=== PATIENT | male | born 1960 | race Caucasian/White ===

== ENCOUNTER 2018-02-05 06:33 | Day surgery (SDC) | payer OTHER ==
[2018-02-05] MEDS ORDERED: FENTAnyl 50 MCG/ML VIAL ×2 (07:50)
[2018-02-05] MEDS ORDERED: LABETALOL HCL 20MG INJ (07:50)
[2018-02-05] MEDS ORDERED: MIDAZOLAM 1 MG/ML 2 ML INJ (07:50)
[2018-02-05] MEDS ORDERED: NALOXONE (0.4 MG/ML) INJ (09:08)
== END 2018-02-05 16:13 | disposition home or self-care (01) ==
LOC: GIL 06:33
DX: Z12.11 Encounter for screening for malignant neoplasm of colon (principal); D12.2 Benign neoplasm of ascending colon; K63.5 Polyp of colon; K57.30 Diverticulosis of large intestine without perforation or abscess without bleeding; K63.89 Other specified diseases of intestine; K64.4 Residual hemorrhoidal skin tags; I10 Essential (primary) hypertension; E78.5 Hyperlipidemia, unspecified; E11.319 Type 2 diabetes mellitus with unspecified diabetic retinopathy without macular edema
CPT/HCPCS: 45380; 82962; 88305

== ENCOUNTER 2018-06-10 14:34 | Inpatient (IN) | payer OTHER ==
[2018-06-10 16:44] LABS: ADD MAN DIFF? NO
[2018-06-10 16:51] LABS: BASOPHILS % 0.6 % (0.0-2.0); EOSINOPHILS # 0.2 10^3/ul (0.0-0.5); EOSINOPHILS % 4.2 % (0.0-7.0); HEMATOCRIT 34.7 % (42.0-52.0); HEMOGLOBIN 10.6 g/dl (14.0-18.0); LYMPHOCYTES # 0.6 10^3/ul (0.8-2.9); MEAN CORPUSCULAR HEMOGLOBIN 27.1 pg (29.0-33.0); MEAN CORPUSCULAR HGB CONC 30.5 g/dl (32.0-37.0); MEAN CORPUSCULAR VOLUME 88.7 fl (82.0-101.0); MEAN PLATELET VOLUME 9.1 fl (7.4-10.4); MONOCYTE # 0.5 10^3/ul (0.3-0.9); MONOCYTES % 10.6 % (0.0-11.0); NEUTROPHIL # 3.6 10^3/ul (1.6-7.5); NEUTROPHILS % 72.2 % (39.0-77.0); PLATELET COUNT 224 10^3/UL (140-415); RED BLOOD COUNT 3.91 10^6/ul (4.70-6.10); RED CELL DISTRIBUTION WIDTH 16.2 % (11.5-14.5)
[2018-06-10] MEDS ORDERED: NITROGLYCERIN (SL) 0.4 MG TAB SL (17:00)
[2018-06-10] MEDS: FUROSEMIDE 40 MG INJ IV (17:03)
[2018-06-10] MEDS: ASPIRIN 81 MG TAB PO (17:03)
[2018-06-10] MEDS: NITROGLYCERIN 2% 1 GM OINT PKT TD (17:03)
[2018-06-10 17:11] LABS: ANION GAP 13 (5-13); BLOOD UREA NITROGEN 80 mg/dl (7-20); CALCIUM 8.7 mg/dl (8.4-10.2); CARBON DIOXIDE 24 mmol/L (21-31); CHLORIDE 108 mmol/L (97-110); CREATININE 5.28 mg/dl (0.61-1.24); Estimated GFR 11 mL/min (>60); GLUCOSE 161 mg/dl (70-220); POTASSIUM 4.5 mmol/L (3.5-5.1); SODIUM 145 mmol/L (135-144)
[2018-06-10] MEDS: CEFTRIAXONE 1 GM/50 ML (PMX) 50 ML IVPB (18:05)
[2018-06-10] MEDS: AZITHROMYCIN 500MG/NS (PMX) 250 ML IV (18:40)
[2018-06-10 18:41] LABS: LACTIC ACID 0.7 mmol/L (0.5-2.0)
[2018-06-10] MEDS ORDERED: ONDANSETRON 4 MG INJ IV (19:30)
[2018-06-10] MEDS ORDERED: ACETAMINOPHEN 325 MG TAB PO (19:30)
[2018-06-10 20:23] LABS: LACTIC ACID 0.8 mmol/L (0.5-2.0)
[2018-06-10] MEDS ORDERED: NACL 0.9% 3 ML SYG IV (20:30)
[2018-06-10 20:41] LABS: ANION GAP 14 (5-13); BLOOD UREA NITROGEN 80 mg/dl (7-20); CALCIUM 8.8 mg/dl (8.4-10.2); CARBON DIOXIDE 26 mmol/L (21-31); CHLORIDE 106 mmol/L (97-110); CREATININE 5.29 mg/dl (0.61-1.24); GLUCOSE 152 mg/dl (70-220); PHOSPHORUS 6.1 mg/dl (2.5-4.9); POTASSIUM 4.9 mmol/L (3.5-5.1); SODIUM 146 mmol/L (135-144)
[2018-06-10 22:27] LABS: CREATINE KINASE 216 IU/L (23-200)
[2018-06-10 22:39] LABS: CK INDEX 1.7; TROPONIN-I 0.026 ng/ml (0.000-0.120)
[2018-06-10] MEDS: morphine 2 MG INJ IV ×2 (22:40→23:08)
[2018-06-10 22:41] LABS: CK-MB 3.63 ng/ml (0.0-2.4)
[2018-06-11] MEDS: hydrALAzine 20 MG INJ IV (01:41)
[2018-06-11] MEDS: AMLODIPINE 5 MG TAB PO ×2 (01:41→08:46)
[2018-06-11] MEDS: FUROSEMIDE 40 MG INJ IV ×2 (01:42→18:20)
[2018-06-11 02:01] LABS: SODIUM,URINE RANDOM 97 mmol/L (30-90)
[2018-06-11 02:12] LABS: ADD UMIC YES; UR ASCORBIC ACID NEGATIVE (NEGATIVE); UR BACTERIA FEW /HPF (NONE SEEN); UR BILIRUBIN (Dip) NEGATIVE (NEGATIVE); UR BLOOD (Dip) 1+ mg/dL (NEGATIVE); UR CLARITY CLEAR (CLEAR); UR COLOR YELLOW (YELLOW); UR GLUCOSE (Dip) 2+ mg/dL (NEGATIVE); UR KETONES (Dip) NEGATIVE (NEGATIVE); UR LEUKOCYTE ESTERASE (Dip) NEGATIVE Leu/ul (NEGATIVE); UR NITRITE (Dip) NEGATIVE (NEGATIVE); UR RBC 14 /HPF (0-5); UR SPECIFIC GRAVITY (Dip) 1.013 (1.003-1.030); UR TOTAL PROTEIN (Dip) 3+ mg/dl (NEGATIVE); UR UROBILINOGEN (Dip) NEGATIVE (NEGATIVE); UR WBC 1 /HPF (0-5)
[2018-06-11] MEDS: METOLAZONE 2.5 MG TAB PO ×2 (02:19→04:14)
[2018-06-11 06:07] LABS: ADD MAN DIFF? NO
[2018-06-11 06:11] LABS: WHITE BLOOD COUNT 6.6 10^3/ul (4.8-10.8)
[2018-06-11 06:11] LABS: ABNORMAL IP MESSAGE 1; BASOPHIL # 0.1 10^3/ul (0.0-0.1); BASOPHILS % 0.9 % (0.0-2.0); EOSINOPHILS # 0.2 10^3/ul (0.0-0.5); EOSINOPHILS % 2.6 % (0.0-7.0); HEMATOCRIT 31.7 % (42.0-52.0); HEMOGLOBIN 9.8 g/dl (14.0-18.0); LYMPHOCYTES # 0.5 10^3/ul (0.8-2.9); LYMPHOCYTES % 7.1 % (15.0-51.0); MEAN CORPUSCULAR HEMOGLOBIN 27.3 pg (29.0-33.0); MEAN CORPUSCULAR HGB CONC 30.9 g/dl (32.0-37.0); MEAN CORPUSCULAR VOLUME 88.3 fl (82.0-101.0); MONOCYTE # 0.6 10^3/ul (0.3-0.9); MONOCYTES % 8.8 % (0.0-11.0); NEUTROPHIL # 5.3 10^3/ul (1.6-7.5); NEUTROPHILS % 80.1 % (39.0-77.0); PLATELET COUNT 201 10^3/UL (140-415); POSITIVE DIFF @See below; RED BLOOD COUNT 3.59 10^6/ul (4.70-6.10); RED CELL DISTRIBUTION WIDTH 16.1 % (11.5-14.5)
[2018-06-11 06:18] LABS: HAAIG REFLEX REFLEX FILED
[2018-06-11 06:44] LABS: CREATINE KINASE 192 IU/L (23-200)
[2018-06-11 06:53] LABS: HEMOGLOBIN A1C 6.5 % (0-5.9)
[2018-06-11 06:54] LABS: CK INDEX 1.9; TROPONIN-I 0.032 ng/ml (0.000-0.120)
[2018-06-11 07:16] LABS: CK-MB 3.63 ng/ml (0.0-2.4); HEPATITIS B SURFACE ANTIGEN NEGATIVE (NEGATIVE)
[2018-06-11 07:18] LABS: PROSTATE SPECIFIC ANTIGEN 2.6 ng/ml (0.0-4.0)
[2018-06-11 07:28] LABS: ALANINE AMINOTRANSFERASE 23 IU/L (13-69); ALBUMIN 3.6 g/dl (3.3-4.9); ALBUMIN/GLOBULIN RATIO 1.28; ALKALINE PHOSPHATASE 111 IU/L (42-121); ANION GAP 13 (5-13); ASPARTATE AMINO TRANSFERASE 16 IU/L (15-46); BLOOD UREA NITROGEN 79 mg/dl (7-20); CALCIUM 8.3 mg/dl (8.4-10.2); CARBON DIOXIDE 24 mmol/L (21-31); CHLORIDE 108 mmol/L (97-110); CHOL/HDL RATIO 3.7 RATIO; CHOLESTEROL 143 mg/dl (100-200); CREATININE 5.41 mg/dl (0.61-1.24); Estimated GFR 11 mL/min (>60); GLUCOSE 125 mg/dl (70-220); HDL CHOLESTEROL 38 mg/dl (30-78); LDL CHOLESTEROL,CALCULATED 84 mg/dl; MAGNESIUM 2.2 mg/dl (1.7-2.5); POTASSIUM 4.2 mmol/L (3.5-5.1); SODIUM 145 mmol/L (135-144); TOTAL PROTEIN 6.4 g/dl (6.1-8.1); TRIGLYCERIDES 104 mg/dl (0-149)
[2018-06-11 07:34] LABS: HEPATITIS B CORE ANTIBODY NEGATIVE (NEGATIVE); HEPATITIS C VIRAL ANTIBODY NEGATIVE (NEGATIVE)
[2018-06-11 07:36] LABS: HEPATITIS B SURFACE ANTIBODY NEGATIVE (NEGATIVE)
[2018-06-11] MEDS ORDERED: DEXTROSE 50% 50 ML SYRINGE IV (08:00)
[2018-06-11] MEDS ORDERED: GLUCOSE GEL 15 GRAM TUBE BUCCAL (08:00)
[2018-06-11] MEDS ORDERED: GLUCOSE GEL 15 GRAM TUBE PO ×2 (08:00)
[2018-06-11] MEDS ORDERED: GLUCAGON 1 MG INJ IM (08:00)
[2018-06-11 08:26] LABS: BILIRUBIN,INDIRECT 0.1 mg/dl (0-1.1); BILIRUBIN,TOTAL 0.1 mg/dl (0.2-1.3)
[2018-06-11] MEDS: INSULIN ASPART [NOVOLOG] 3 ML PEN SC ×4 (08:30→21:00)
[2018-06-11] MEDS: FERROUS SULFATE (EC) 325 MG TAB PO ×2 (08:46→21:11)
[2018-06-11 08:54] LABS: HEMOGLOBIN A1C 6.5 % (0-5.9)
[2018-06-11] MEDS: ACETAMINOPHEN 325 MG TAB PO (09:02)
[2018-06-11 11:08] LABS: B-TYPE NATRIURETIC PEPTIDE 61000 PG/ML (0-125)
[2018-06-11] MEDS: ERGOCALCIFEROL 50,000 UNIT CAP PO (11:43)
[2018-06-11] MEDS: METOPROLOL (XL) 25 MG TAB PO (11:43)
[2018-06-11] MEDS: NIFEdipine (XL) 30 MG TAB PO ×2 (11:44→21:11)
[2018-06-11 15:22] LABS: CREATININE,URINE RANDOM 64.07 mg/dl (20-370)
[2018-06-11 15:22] LABS: SODIUM,URINE RANDOM 109 mmol/L (30-90)
[2018-06-11 16:22] LABS: ADD UMIC YES; UR ASCORBIC ACID NEGATIVE (NEGATIVE); UR BILIRUBIN (Dip) NEGATIVE (NEGATIVE); UR BLOOD (Dip) 2+ mg/dL (NEGATIVE); UR BUDDING YEAST FEW /HPF (NONE SEEN); UR CLARITY SLIGHTLY CLOUDY (CLEAR); UR COLOR YELLOW (YELLOW); UR GLUCOSE (Dip) 1+ mg/dL (NEGATIVE); UR KETONES (Dip) NEGATIVE (NEGATIVE); UR LEUKOCYTE ESTERASE (Dip) TRACE Leu/ul (NEGATIVE); UR MUCUS FEW /HPF (NONE SEEN); UR NITRITE (Dip) NEGATIVE (NEGATIVE); UR RBC 169 /HPF (0-5); UR SPECIFIC GRAVITY (Dip) 1.012 (1.003-1.030); UR TOTAL PROTEIN (Dip) 3+ mg/dl (NEGATIVE); UR UROBILINOGEN (Dip) NEGATIVE (NEGATIVE); UR WBC 11 /HPF (0-5)
[2018-06-11] MEDS: CEFTRIAXONE 1 GM/50 ML (PMX) 50 ML IVPB (20:04)
[2018-06-11] MEDS: AZITHROMYCIN 500MG/NS (PMX) 250 ML IVPB (20:04)
[2018-06-11] MEDS ORDERED: INSULIN GLARGINE [LANtus] 3 ML PEN SC (21:00)
[2018-06-11] MEDS: ATORVASTATIN 40 MG TAB PO (21:11)
[2018-06-11] MEDS: TAMSULOSIN (SR) 0.4 MG CAP PO (21:11)
[2018-06-11] MEDS: INSULIN GLARGINE [LANTus] (100 UNITS/ML) SYG SC (21:15)
[2018-06-12] MEDS: ACCU-CHEK XX (02:00)
[2018-06-12 06:02] LABS: ADD MAN DIFF? NO
[2018-06-12 06:03] LABS: WHITE BLOOD COUNT 4.3 10^3/ul (4.8-10.8)
[2018-06-12 06:03] LABS: ABNORMAL IP MESSAGE 1; BASOPHIL # 0.1 10^3/ul (0.0-0.1); BASOPHILS % 1.2 % (0.0-2.0); EOSINOPHILS # 0.1 10^3/ul (0.0-0.5); EOSINOPHILS % 2.3 % (0.0-7.0); HEMATOCRIT 30.8 % (42.0-52.0); HEMOGLOBIN 9.4 g/dl (14.0-18.0); LYMPHOCYTES # 0.5 10^3/ul (0.8-2.9); LYMPHOCYTES % 11.2 % (15.0-51.0); MEAN CORPUSCULAR HEMOGLOBIN 27.2 pg (29.0-33.0); MEAN CORPUSCULAR HGB CONC 30.5 g/dl (32.0-37.0); MEAN PLATELET VOLUME 10.2 fl (7.4-10.4); MONOCYTE # 0.4 10^3/ul (0.3-0.9); MONOCYTES % 9.1 % (0.0-11.0); NEUTROPHIL # 3.3 10^3/ul (1.6-7.5); PLATELET COUNT 222 10^3/UL (140-415); POSITIVE DIFF @See below; RED BLOOD COUNT 3.46 10^6/ul (4.70-6.10); RED CELL DISTRIBUTION WIDTH 16.3 % (11.5-14.5)
[2018-06-12 06:32] LABS: CHOLESTEROL 131 mg/dl (100-200)
[2018-06-12 06:32] LABS: CHOL/HDL RATIO 3.6 RATIO; CREATINE KINASE 141 IU/L (23-200); HDL CHOLESTEROL 36 mg/dl (30-78); LDL CHOLESTEROL,CALCULATED 78 mg/dl; TRIGLYCERIDES 87 mg/dl (0-149)
[2018-06-12 06:41] LABS: ANION GAP 14 (5-13); BLOOD UREA NITROGEN 81 mg/dl (7-20); CALCIUM 8.1 mg/dl (8.4-10.2); CARBON DIOXIDE 25 mmol/L (21-31); CHLORIDE 107 mmol/L (97-110); CREATININE 5.73 mg/dl (0.61-1.24); Estimated GFR 10 mL/min (>60); GLUCOSE 62 mg/dl (70-220); MAGNESIUM 2.3 mg/dl (1.7-2.5); PHOSPHORUS 6.2 mg/dl (2.5-4.9); SODIUM 146 mmol/L (135-144)
[2018-06-12 06:42] LABS: CK INDEX 2.2; TROPONIN-I 0.038 ng/ml (0.000-0.120)
[2018-06-12 06:48] LABS: CK-MB 3.06 ng/ml (0.0-2.4)
[2018-06-12] MEDS: INSULIN ASPART [NOVOLOG] 3 ML PEN SC ×4 (08:00→20:51)
[2018-06-12] MEDS: NIFEdipine (XL) 60 MG TAB PO (08:18)
[2018-06-12] MEDS: METOPROLOL (XL) 25 MG TAB PO (08:19)
[2018-06-12] MEDS: FERROUS SULFATE (EC) 325 MG TAB PO ×2 (08:19→20:39)
[2018-06-12] MEDS: DEXTROSE 50% 50 ML SYRINGE IV (08:20)
[2018-06-12] MEDS: SEVELAMER CARBONATE 800 MG TABLET PO ×3 (09:36→17:25)
[2018-06-12 13:54] LABS: IRON 24 ug/dl (35-150)
[2018-06-12 14:03] LABS: % IRON SATURATION 10 % SAT (22-52); TOTAL IRON BINDING CAPACITY 243 ug/dl (241-421)
[2018-06-12] MEDS: CALCITRIOL 1 MCG INJ IV (15:04)
[2018-06-12] MEDS: CHOLECALCIFEROL 2,000 UNIT CAP PO (17:27)
[2018-06-12] MEDS: ATORVASTATIN 40 MG TAB PO (20:39)
[2018-06-12] MEDS: DOCUSATE SODIUM 100 MG CAP PO (20:40)
[2018-06-12] MEDS: NIFEdipine (XL) 30 MG TAB PO (20:40)
[2018-06-12] MEDS: CEFTRIAXONE 1 GM/50 ML (PMX) 50 ML IVPB (20:42)
[2018-06-12] MEDS: AZITHROMYCIN 500MG/NS (PMX) 250 ML IVPB (20:43)
[2018-06-12] MEDS: TAMSULOSIN (SR) 0.4 MG CAP PO (20:44)
[2018-06-12] MEDS: INSULIN GLARGINE [LANTus] (100 UNITS/ML) SYG SC (20:50)
[2018-06-13] MEDS: ACCU-CHEK XX (02:00)
[2018-06-13 05:37] LABS: ADD MAN DIFF? NO
[2018-06-13 05:38] LABS: ABNORMAL IP MESSAGE 1; BASOPHIL # 0.1 10^3/ul (0.0-0.1); EOSINOPHILS # 0.2 10^3/ul (0.0-0.5); EOSINOPHILS % 3.5 % (0.0-7.0); HEMATOCRIT 31.2 % (42.0-52.0); HEMOGLOBIN 9.6 g/dl (14.0-18.0); LYMPHOCYTES # 0.6 10^3/ul (0.8-2.9); LYMPHOCYTES % 12.1 % (15.0-51.0); MEAN CORPUSCULAR HEMOGLOBIN 27.4 pg (29.0-33.0); MEAN CORPUSCULAR HGB CONC 30.8 g/dl (32.0-37.0); MEAN CORPUSCULAR VOLUME 89.1 fl (82.0-101.0); MEAN PLATELET VOLUME 9.9 fl (7.4-10.4); MONOCYTE # 0.6 10^3/ul (0.3-0.9); MONOCYTES % 11.9 % (0.0-11.0); NEUTROPHIL # 3.4 10^3/ul (1.6-7.5); NEUTROPHILS % 71.1 % (39.0-77.0); PLATELET COUNT 218 10^3/UL (140-415); POSITIVE DIFF @See below; RED CELL DISTRIBUTION WIDTH 16.1 % (11.5-14.5)
[2018-06-13 05:38] LABS: WHITE BLOOD COUNT 4.8 10^3/ul (4.8-10.8)
[2018-06-13 06:26] LABS: ANION GAP 15 (5-13); BLOOD UREA NITROGEN 82 mg/dl (7-20); CARBON DIOXIDE 24 mmol/L (21-31); CHLORIDE 107 mmol/L (97-110); CREATININE 6.15 mg/dl (0.61-1.24); Estimated GFR 9 mL/min (>60); GLUCOSE 135 mg/dl (70-220); MAGNESIUM 2.3 mg/dl (1.7-2.5); PHOSPHORUS 6.4 mg/dl (2.5-4.9); SODIUM 146 mmol/L (135-144)
[2018-06-13] MEDS: INSULIN ASPART [NOVOLOG] 3 ML PEN SC ×4 (08:00→20:49)
[2018-06-13] MEDS: SEVELAMER CARBONATE 800 MG TABLET PO ×3 (08:11→17:35)
[2018-06-13] MEDS: CHOLECALCIFEROL 2,000 UNIT CAP PO (08:52)
[2018-06-13] MEDS: FERROUS SULFATE (EC) 325 MG TAB PO ×2 (08:52→20:40)
[2018-06-13] MEDS: METOPROLOL (XL) 25 MG TAB PO ×2 (08:53→20:42)
[2018-06-13] MEDS: NIFEdipine (XL) 60 MG TAB PO (08:53)
[2018-06-13] MEDS: DOXAZOSIN 2 MG TAB PO (12:25)
[2018-06-13] MEDS: CEFTRIAXONE 1 GM/50 ML (PMX) 50 ML IVPB (20:33)
[2018-06-13] MEDS: ASCORBIC ACID 500 MG TAB PO (20:40)
[2018-06-13] MEDS: ATORVASTATIN 40 MG TAB PO (20:40)
[2018-06-13] MEDS: DOXAZOSIN 4 MG TAB PO (20:41)
[2018-06-13] MEDS: INSULIN GLARGINE [LANTus] (100 UNITS/ML) SYG SC (20:49)
[2018-06-13] MEDS: AZITHROMYCIN 500MG/NS (PMX) 250 ML IVPB (21:21)
[2018-06-14] MEDS: ACCU-CHEK XX (02:08)
[2018-06-14 06:08] LABS: ADD MAN DIFF? NO
[2018-06-14 06:24] LABS: WHITE BLOOD COUNT 4.5 10^3/ul (4.8-10.8)
[2018-06-14 06:25] LABS: ABNORMAL IP MESSAGE 1; BASOPHIL # 0.1 10^3/ul (0.0-0.1); BASOPHILS % 1.3 % (0.0-2.0); EOSINOPHILS # 0.2 10^3/ul (0.0-0.5); EOSINOPHILS % 4.8 % (0.0-7.0); HEMATOCRIT 31.9 % (42.0-52.0); HEMOGLOBIN 9.8 g/dl (14.0-18.0); LYMPHOCYTES # 0.6 10^3/ul (0.8-2.9); LYMPHOCYTES % 12.6 % (15.0-51.0); MEAN CORPUSCULAR HEMOGLOBIN 27.2 pg (29.0-33.0); MEAN CORPUSCULAR HGB CONC 30.7 g/dl (32.0-37.0); MEAN CORPUSCULAR VOLUME 88.6 fl (82.0-101.0); MEAN PLATELET VOLUME 10.1 fl (7.4-10.4); MONOCYTE # 0.5 10^3/ul (0.3-0.9); NEUTROPHIL # 3.2 10^3/ul (1.6-7.5); NEUTROPHILS % 69.9 % (39.0-77.0); PLATELET COUNT 230 10^3/UL (140-415); POSITIVE DIFF @See below; RED CELL DISTRIBUTION WIDTH 16.2 % (11.5-14.5)
[2018-06-14 06:41] LABS: ANION GAP 11 (5-13); BLOOD UREA NITROGEN 84 mg/dl (7-20); CARBON DIOXIDE 23 mmol/L (21-31); CHLORIDE 111 mmol/L (97-110); CREATININE 6.59 mg/dl (0.61-1.24); Estimated GFR 9 mL/min (>60); GLUCOSE 71 mg/dl (70-220); MAGNESIUM 2.5 mg/dl (1.7-2.5); PHOSPHORUS 6.9 mg/dl (2.5-4.9); POTASSIUM 4.1 mmol/L (3.5-5.1); SODIUM 145 mmol/L (135-144)
[2018-06-14] MEDS: SEVELAMER CARBONATE 800 MG TABLET PO ×3 (07:31→17:22)
[2018-06-14] MEDS: INSULIN ASPART [NOVOLOG] 3 ML PEN SC ×4 (07:31→20:48)
[2018-06-14] MEDS: CHOLECALCIFEROL 2,000 UNIT CAP PO (09:04)
[2018-06-14] MEDS: ASCORBIC ACID 500 MG TAB PO ×2 (09:05→20:47)
[2018-06-14] MEDS: FERROUS SULFATE (EC) 325 MG TAB PO ×2 (09:05→20:47)
[2018-06-14] MEDS: METOPROLOL (XL) 25 MG TAB PO ×2 (09:09→20:48)
[2018-06-14] MEDS: NIFEdipine (XL) 60 MG TAB PO (09:10)
[2018-06-14 11:52] LABS: INR 1.07; PT RATIO 1.1
[2018-06-14 15:26] LABS: PROTIME 13.3 Sec (11.9-14.9)
[2018-06-14 15:27] LABS: PARTIAL THROMBOPLASTIN TIME 33.7 Sec (23.0-35.0)
[2018-06-14 17:56] LABS: CREATININE, RANDOM URINE 64 mg/dL (20-320); CREATININE, RANDOM URINE 70 mg/dL (20-320); MICROALBUMIN 258.3 mg/dL; MICROALBUMIN 422.2 mg/dL; MICROALBUMIN/CREATININE RATIO 4036 (<30); MICROALBUMIN/CREATININE RATIO 6031 (<30)
[2018-06-14] MEDS: CEFTRIAXONE 1 GM/50 ML (PMX) 50 ML IVPB (20:47)
[2018-06-14] MEDS: ATORVASTATIN 40 MG TAB PO (20:48)
[2018-06-14] MEDS: DOXAZOSIN 4 MG TAB PO (20:48)
[2018-06-14] MEDS: INSULIN GLARGINE [LANTus] (100 UNITS/ML) SYG SC (20:54)
[2018-06-14 22:32] LABS: PSA, FREE 1.3 ng/mL
[2018-06-15] MEDS: ACCU-CHEK XX (02:00)
[2018-06-15 07:02] LABS: ADD MAN DIFF? NO
[2018-06-15 07:20] LABS: ABNORMAL IP MESSAGE 1; BASOPHIL # 0.1 10^3/ul (0.0-0.1); BASOPHILS % 1.5 % (0.0-2.0); EOSINOPHILS # 0.2 10^3/ul (0.0-0.5); EOSINOPHILS % 4.4 % (0.0-7.0); HEMATOCRIT 31.9 % (42.0-52.0); HEMOGLOBIN 9.8 g/dl (14.0-18.0); LYMPHOCYTES # 0.6 10^3/ul (0.8-2.9); LYMPHOCYTES % 11.9 % (15.0-51.0); MEAN CORPUSCULAR HEMOGLOBIN 27.3 pg (29.0-33.0); MEAN CORPUSCULAR HGB CONC 30.7 g/dl (32.0-37.0); MEAN CORPUSCULAR VOLUME 88.9 fl (82.0-101.0); MEAN PLATELET VOLUME 10.5 fl (7.4-10.4); MONOCYTE # 0.5 10^3/ul (0.3-0.9); NEUTROPHIL # 3.4 10^3/ul (1.6-7.5); NEUTROPHILS % 71.8 % (39.0-77.0); PLATELET COUNT 220 10^3/UL (140-415); POSITIVE DIFF @See below; RED BLOOD COUNT 3.59 10^6/ul (4.70-6.10); RED CELL DISTRIBUTION WIDTH 16.1 % (11.5-14.5)
[2018-06-15 07:20] LABS: WHITE BLOOD COUNT 4.8 10^3/ul (4.8-10.8)
[2018-06-15 07:55] LABS: ANION GAP 13 (5-13); BLOOD UREA NITROGEN 80 mg/dl (7-20); CARBON DIOXIDE 24 mmol/L (21-31); CHLORIDE 108 mmol/L (97-110); Estimated GFR 9 mL/min (>60); GLUCOSE 106 mg/dl (70-220); MAGNESIUM 2.4 mg/dl (1.7-2.5); PHOSPHORUS 6.7 mg/dl (2.5-4.9); POTASSIUM 4.1 mmol/L (3.5-5.1); SODIUM 145 mmol/L (135-144)
[2018-06-15] MEDS: SEVELAMER CARBONATE 800 MG TABLET PO ×3 (08:00→18:15)
[2018-06-15] MEDS: INSULIN ASPART [NOVOLOG] 3 ML PEN SC ×4 (08:00→20:33)
[2018-06-15] MEDS: ASCORBIC ACID 500 MG TAB PO ×2 (09:10→22:52)
[2018-06-15] MEDS: NIFEdipine (XL) 60 MG TAB PO (09:10)
[2018-06-15] MEDS: METOPROLOL (XL) 25 MG TAB PO ×2 (09:11→22:54)
[2018-06-15] MEDS: CHOLECALCIFEROL 2,000 UNIT CAP PO (09:11)
[2018-06-15] MEDS: FERROUS SULFATE (EC) 325 MG TAB PO ×2 (09:12→22:52)
[2018-06-15] MEDS ORDERED: FENTAnyl 50 MCG/ML VIAL (10:04)
[2018-06-15] MEDS ORDERED: LIDOCAINE 1% (MDV) 20 ML INJ (10:04)
[2018-06-15] MEDS ORDERED: MIDAZOLAM 1 MG/ML 2 ML INJ (10:04)
[2018-06-15] MEDS ORDERED: HEPARIN 1000 UNITS/NS (A-LINE) 1,000 ML (10:04)
[2018-06-15] MEDS ORDERED: HEPARIN 1000 UNITS/ML 10 ML INJ (10:04)
[2018-06-15] MEDS: CALCITRIOL 1 MCG INJ IV (12:17)
[2018-06-15] MEDS: INSULIN GLARGINE [LANTus] (100 UNITS/ML) SYG SC (20:32)
[2018-06-15] MEDS: HEPARIN 1000 UNITS/ML 10 ML INJ CATHETER (22:25)
[2018-06-15] MEDS: ATORVASTATIN 40 MG TAB PO (22:52)
[2018-06-15] MEDS: CEFTRIAXONE 1 GM/50 ML (PMX) 50 ML IVPB (22:52)
[2018-06-15] MEDS: DOXAZOSIN 4 MG TAB PO (22:53)
[2018-06-15] MEDS: ACETAMINOPHEN 325 MG TAB PO (22:59)
[2018-06-16] MEDS: ACCU-CHEK XX (01:23)
[2018-06-16] MEDS: hydrALAzine 20 MG INJ IV (03:49)
[2018-06-16 06:05] LABS: ADD MAN DIFF? NO
[2018-06-16 06:08] LABS: WHITE BLOOD COUNT 4.4 10^3/ul (4.8-10.8)
[2018-06-16 06:08] LABS: ABNORMAL IP MESSAGE 1; BASOPHIL # 0.1 10^3/ul (0.0-0.1); BASOPHILS % 1.1 % (0.0-2.0); EOSINOPHILS # 0.2 10^3/ul (0.0-0.5); EOSINOPHILS % 3.9 % (0.0-7.0); HEMATOCRIT 31.7 % (42.0-52.0); HEMOGLOBIN 9.8 g/dl (14.0-18.0); LYMPHOCYTES # 0.4 10^3/ul (0.8-2.9); LYMPHOCYTES % 9.2 % (15.0-51.0); MEAN CORPUSCULAR HEMOGLOBIN 27.1 pg (29.0-33.0); MEAN CORPUSCULAR HGB CONC 30.9 g/dl (32.0-37.0); MEAN CORPUSCULAR VOLUME 87.6 fl (82.0-101.0); MEAN PLATELET VOLUME 10.3 fl (7.4-10.4); MONOCYTE # 0.4 10^3/ul (0.3-0.9); MONOCYTES % 9.6 % (0.0-11.0); NEUTROPHIL # 3.3 10^3/ul (1.6-7.5); NEUTROPHILS % 75.7 % (39.0-77.0); PLATELET COUNT 209 10^3/UL (140-415); POSITIVE DIFF @See below; RED BLOOD COUNT 3.62 10^6/ul (4.70-6.10); RED CELL DISTRIBUTION WIDTH 15.9 % (11.5-14.5)
[2018-06-16 06:40] LABS: ANION GAP 11 (5-13); BLOOD UREA NITROGEN 58 mg/dl (7-20); CARBON DIOXIDE 27 mmol/L (21-31); CHLORIDE 105 mmol/L (97-110); CREATININE 4.68 mg/dl (0.61-1.24); Estimated GFR 13 mL/min (>60); GLUCOSE 107 mg/dl (70-220); MAGNESIUM 2.2 mg/dl (1.7-2.5); PHOSPHORUS 4.9 mg/dl (2.5-4.9); POTASSIUM 4.1 mmol/L (3.5-5.1); SODIUM 143 mmol/L (135-144)
[2018-06-16] MEDS: ACETAMINOPHEN 325 MG TAB PO (06:41)
[2018-06-16] MEDS: INSULIN ASPART [NOVOLOG] 3 ML PEN SC ×4 (08:00→21:00)
[2018-06-16] MEDS: SEVELAMER CARBONATE 800 MG TABLET PO ×3 (08:15→17:49)
[2018-06-16] MEDS: ASCORBIC ACID 500 MG TAB PO ×2 (08:15→23:42)
[2018-06-16] MEDS: FERROUS SULFATE (EC) 325 MG TAB PO ×2 (08:15→23:41)
[2018-06-16] MEDS: METOPROLOL (XL) 25 MG TAB PO ×2 (08:16→23:43)
[2018-06-16] MEDS: CHOLECALCIFEROL 2,000 UNIT CAP PO (08:16)
[2018-06-16] MEDS: NIFEdipine (XL) 60 MG TAB PO ×2 (08:16→23:41)
[2018-06-16] MEDS: ONDANSETRON 4 MG INJ IV ×2 (10:22→17:48)
[2018-06-16] MEDS: HYDROCODONE/APAP (5/325) TAB PO (10:33)
[2018-06-16] MEDS: INSULIN GLARGINE [LANTus] (100 UNITS/ML) SYG SC (21:00)
[2018-06-16] MEDS: HEPARIN 1000 UNITS/ML 10 ML INJ CATHETER (22:49)
[2018-06-16] MEDS: CEFTRIAXONE 1 GM/50 ML (PMX) 50 ML IVPB (23:40)
[2018-06-16] MEDS: ATORVASTATIN 40 MG TAB PO (23:41)
[2018-06-16] MEDS: DOXAZOSIN 4 MG TAB PO (23:42)
[2018-06-17 01:31] LABS: PTH INTACT 231 pg/mL (14-64)
[2018-06-17] MEDS: ACCU-CHEK XX (02:00)
[2018-06-17] MEDS: INSULIN ASPART [NOVOLOG] 3 ML PEN SC ×4 (07:32→20:51)
[2018-06-17] MEDS: CHOLECALCIFEROL 2,000 UNIT CAP PO (08:07)
[2018-06-17] MEDS: DOCUSATE SODIUM 100 MG CAP PO (08:07)
[2018-06-17] MEDS: FERROUS SULFATE (EC) 325 MG TAB PO ×2 (08:07→20:50)
[2018-06-17] MEDS: BISACODYL (EC) 5 MG TAB PO (08:07)
[2018-06-17] MEDS: ASCORBIC ACID 500 MG TAB PO ×2 (08:07→20:50)
[2018-06-17] MEDS: SEVELAMER CARBONATE 800 MG TABLET PO ×3 (08:07→16:39)
[2018-06-17] MEDS: NIFEdipine (XL) 60 MG TAB PO ×2 (08:08→20:49)
[2018-06-17] MEDS: METOPROLOL (XL) 25 MG TAB PO ×2 (08:08→20:51)
[2018-06-17] MEDS: HEPARIN 1000 UNITS/ML 10 ML INJ CATHETER (14:46)
[2018-06-17] MEDS: hydrALAzine 20 MG INJ IV (14:47)
[2018-06-17] MEDS: ATORVASTATIN 40 MG TAB PO (20:49)
[2018-06-17] MEDS: DOXAZOSIN 4 MG TAB PO (20:50)
[2018-06-17] MEDS: CEFTRIAXONE 1 GM/50 ML (PMX) 50 ML IVPB (20:55)
[2018-06-18] MEDS: hydrALAzine 20 MG INJ IV (00:19)
[2018-06-18] MEDS: ACCU-CHEK XX (02:00)
[2018-06-18] MEDS: INSULIN ASPART [NOVOLOG] 3 ML PEN SC ×4 (07:19→21:00)
[2018-06-18] MEDS: FERROUS SULFATE (EC) 325 MG TAB PO ×2 (09:22→21:30)
[2018-06-18] MEDS: CHOLECALCIFEROL 2,000 UNIT CAP PO (09:22)
[2018-06-18] MEDS: ASCORBIC ACID 500 MG TAB PO ×2 (09:22→21:30)
[2018-06-18] MEDS: SEVELAMER CARBONATE 800 MG TABLET PO ×3 (09:22→17:36)
[2018-06-18] MEDS: NIFEdipine (XL) 60 MG TAB PO ×2 (09:23→21:29)
[2018-06-18] MEDS: LISINOPRIL 20 MG TAB PO ×2 (09:23→21:31)
[2018-06-18] MEDS: METOPROLOL (XL) 25 MG TAB PO ×2 (09:23→21:30)
[2018-06-18] MEDS: ERGOCALCIFEROL 50,000 UNIT CAP PO (09:30)
[2018-06-18] MEDS: HEPARIN 1000 UNITS/ML 10 ML INJ CATHETER (16:38)
[2018-06-18] MEDS: ATORVASTATIN 40 MG TAB PO (21:29)
[2018-06-18] MEDS: DOXAZOSIN 4 MG TAB PO (21:29)
== END 2018-06-18 22:09 | disposition home or self-care (01) | DRG 291 ==
LOC: E/R 14:34 → 6WM 19:20
PROC: 0JH63XZ Insertion of Tunneled Vascular Access Device into Chest Subcutaneous Tissue and Fascia, Percutaneous Approach (ICD-10-PCS; principal; 2018-06-15 09:45)
PROC: 02H633Z Insertion of Infusion Device into Right Atrium, Percutaneous Approach (ICD-10-PCS; 2018-06-15 09:45)
PROC: 5A1D70Z Performance of Urinary Filtration, Intermittent, Less than 6 Hours Per Day (ICD-10-PCS; 2018-06-15 09:45)
DX: I13.2 Hypertensive heart and chronic kidney disease with heart failure and with stage 5 chronic kidney disease, or end stage renal disease (principal); N18.6 End stage renal disease; I50.23 Acute on chronic systolic (congestive) heart failure; J18.9 Pneumonia, unspecified organism; E87.0 Hyperosmolality and hypernatremia; I42.9 Cardiomyopathy, unspecified; E11.22 Type 2 diabetes mellitus with diabetic chronic kidney disease; I16.0 Hypertensive urgency; E78.5 Hyperlipidemia, unspecified; E11.319 Type 2 diabetes mellitus with unspecified diabetic retinopathy without macular edema; E55.9 Vitamin D deficiency, unspecified; E03.9 Hypothyroidism, unspecified; D63.1 Anemia in chronic kidney disease; H54.7 Unspecified visual loss; N40.1 Benign prostatic hyperplasia with lower urinary tract symptoms; R33.8 Other retention of urine; Z79.4 Long term (current) use of insulin
CPT/HCPCS: 36415; 71045; 76775; 80048; 80053; 80061; 80069; 81001; 81003; 82043; 82306; 82550; 82553; 82652; 82962; 83036; 83540; 83605; 83735; 83880; 83970; 84100; 84153; 84154; 84155; 84300; 84439; 84443; 84484; 85025; 85610; 85730; 86704; 86706; 86709; 86803; 87040; 87086; 87340; 90935; 93005; 93306; 93880; 96365; 96367; 96375; 99285-25

== ENCOUNTER 2018-07-14 16:36 | Emergency (ER) | payer SELFPAY, OTHER | END 2018-07-14 19:41 | disposition left against medical advice (07) | LOC: E/R 16:36 | DX: Z53.21 Procedure and treatment not carried out due to patient leaving prior to being seen by health care provider (principal) ==

== ENCOUNTER 2018-08-16 15:40 | Emergency (ER) | payer OTHER ==
[2018-08-16 16:41] LABS: ADD MAN DIFF? NO
[2018-08-16] MEDS: hydrALAzine 20 MG INJ IV (16:42)
[2018-08-16 16:46] LABS: WHITE BLOOD COUNT 6.3 10^3/ul (4.8-10.8)
[2018-08-16 16:46] LABS: ABNORMAL IP MESSAGE 1; BASOPHILS % 0.6 % (0.0-2.0); EOSINOPHILS # 0.2 10^3/ul (0.0-0.5); EOSINOPHILS % 3.2 % (0.0-7.0); HEMOGLOBIN 9.1 g/dl (14.0-18.0); LYMPHOCYTES # 0.6 10^3/ul (0.8-2.9); LYMPHOCYTES % 9.9 % (15.0-51.0); MEAN CORPUSCULAR HEMOGLOBIN 28.3 pg (29.0-33.0); MEAN CORPUSCULAR HGB CONC 31.4 g/dl (32.0-37.0); MEAN CORPUSCULAR VOLUME 90.1 fl (82.0-101.0); MEAN PLATELET VOLUME 9.5 fl (7.4-10.4); MONOCYTE # 0.7 10^3/ul (0.3-0.9); MONOCYTES % 10.4 % (0.0-11.0); NEUTROPHIL # 4.8 10^3/ul (1.6-7.5); NEUTROPHILS % 75.3 % (39.0-77.0); PLATELET COUNT 96 10^3/UL (140-415); POSITIVE DIFF @See below; RED BLOOD COUNT 3.22 10^6/ul (4.70-6.10); RED CELL DISTRIBUTION WIDTH 17.5 % (11.5-14.5)
[2018-08-16 17:04] LABS: ALANINE AMINOTRANSFERASE 22 IU/L (13-69); ALBUMIN 4.1 g/dl (3.3-4.9); ALBUMIN/GLOBULIN RATIO 1.24; ALKALINE PHOSPHATASE 129 IU/L (42-121); ANION GAP 8 (5-13); ASPARTATE AMINO TRANSFERASE 21 IU/L (15-46); BILIRUBIN,INDIRECT 0.6 mg/dl (0-1.1); BILIRUBIN,TOTAL 0.6 mg/dl (0.2-1.3); BLOOD UREA NITROGEN 35 mg/dl (7-20); CALCIUM 8.4 mg/dl (8.4-10.2); CARBON DIOXIDE 34 mmol/L (21-31); CHLORIDE 99 mmol/L (97-110); CREATININE 3.91 mg/dl (0.61-1.24); Estimated GFR 16 mL/min (>60); GLUCOSE 134 mg/dl (70-220); LIPASE 128 U/L (23-300); SODIUM 141 mmol/L (135-144); TOTAL PROTEIN 7.4 g/dl (6.1-8.1)
[2018-08-16 17:15] LABS: TROPONIN-I 0.017 ng/ml (0.000-0.120)
== END 2018-08-16 17:40 | disposition home or self-care (01) ==
LOC: E/R 15:40
DX: I13.2 Hypertensive heart and chronic kidney disease with heart failure and with stage 5 chronic kidney disease, or end stage renal disease (principal); I50.9 Heart failure, unspecified; N18.6 End stage renal disease; E11.22 Type 2 diabetes mellitus with diabetic chronic kidney disease; Z99.2 Dependence on renal dialysis; Z79.4 Long term (current) use of insulin
CPT/HCPCS: 36415; 71045; 80053; 83690; 84484; 85025; 93005; 96374; 99285-25